=== PATIENT | female | born 1965 | race Caucasian/White ===

== ENCOUNTER → 2021-09-04 | Outpatient (CLI) | payer OTHER ==
[2021-09-04 10:35] LABS: Basophils # (A) 0.08 X 10*3/uL (0.00-0.10); Eosinophils # (A) 0.54 X 10*3/uL (0.04-0.35); HCT 42.4 % (37.2-46.3); HGB 13.9 g/dL (12.0-15.0); Immature Grans, Automated 0.5 %; Lymphocytes # (A) 1.69 X 10*3/uL (0.90-5.00); Lymphocytes % (A) 21.8 %; MCH 27.1 pg (27.0-32.0); MCHC 32.8 g/dL (32.0-37.0); MCV 82.8 fL (80.0-97.0); Mean Platelet Volume 10.1 fL (9.5-12.2); Monocytes # (A) 0.59 X 10*3/uL (0.20-1.00); Monocytes % (A) 7.6 %; NRBC Per 100 WBC 0 /100 WBCS (0.0-0.0); Neutrophils # (A) 4.81 X 10*3/uL (1.80-7.70); Neutrophils % (A) 62.1 %; Platelet Count 234 X 10*3/uL (140-440); RBC 5.12 X 10*6/uL (4.10-5.20); RDW 12.5 % (11.5-14.5); WBC 7.75 X 10*3/uL (4.50-10.00)
[2021-09-04 10:51] LABS: ALT 40 U/L (8-44); AST 28 U/L (13-35); African American GFR (CKD) 65.5 (60.0-200.0); Albumin 4.4 g/dL (3.8-4.9); Albumin/Globulin Ratio 1.83 (1.60-3.17); Alkaline Phosphatase 75 U/L (41-126); BUN/Creat Ratio 20.82 Ratio (12.00-20.00); Blood Urea Nitrogen 22.9 mg/dL (9.0-27.0); Calcium 9.2 mg/dL (8.7-10.3); Carbon Dioxide 24.3 mmol/L (20.0-27.5); Chloride 104 mmol/L (96-109); Chol/HDL Ratio 4.68 Ratio; Globulin 2.4 g/dL (1.6-3.3); Glucose 101 mg/dL (70-110); LDL Cholesterol,Calculated 125.9 mg/dL (0.0-131.0); Non-African American GFR(CKD) 56.5 (60.0-200.0); Potassium 4.4 mmol/L (3.5-5.5); Sodium 139 mmol/L (135-145); Total Protein 6.8 g/dL (6.2-8.2)
--- NOTE | 2021-09-05 11:45 | MM ---
Reason for exam: screening (asymptomatic). History: Patient is postmenopausal. Physical Findings: A clinical breast exam by your physician is recommended on an annual basis and results should be correlated with mammographic findings. MG 3D Screening Mammo W/Cad Bilateral CC and MLO view(s) were taken. No prior studies available for comparison. The breast tissue is heterogeneously dense. This may lower the sensitivity of mammography. A couple subtle areas of asymmetric density laterally on the right and central inner aspect on the left are only apparent on 3D and suspected benign. 6 month follow up recommended as no priors are available to demonstrate stability. ASSESSMENT: Probably benign, BI-RAD 3 RECOMMENDATION: Follow-up diagnostic mammogram of both breasts in 6 months.
== END | disposition home or self-care (01) ==
LOC: RADMAMWWP 07:08
PROVIDERS: ATTEND Family Medicine
DX: Z00.00 Encounter for general adult medical examination without abnormal findings (principal); Z12.31 Encounter for screening mammogram for malignant neoplasm of breast; Z78.0 Asymptomatic menopausal state
CPT/HCPCS: 77063; 77067; 80053; 80061; 83036; 84443; 85025

== ENCOUNTER → 2022-03-11 | Outpatient (CLI) | payer OTHER ==
--- NOTE | 2022-03-13 09:08 | MM ---
Reason for Exam: Follow-up at short interval from prior study. Last screening mammogram was performed 6 month(s) ago. Patient History: Menarche at age 18. First Full-Term at age 21. Postmenopausal. Patient has history of breast feeding. Risk Values: Johnna 5 year model risk: 1.0%. NCI Lifetime model risk: 6.6%. Prior Study Comparison: 09/04/2021 Bilateral Screening Mammogram, [facility]. Tissue Density: The breast tissue is heterogeneously dense. This may lower the sensitivity of mammography. Findings: Analyzed By CAD. Asymmetries within the bilateral breasts are unchanged from prior. These are best appreciated on cc view on the right in the lateral aspect and on the upper quadrant on MLO view on the right. Left breast middle depth medial asymmetry is not significantly changed either. Overall Assessment: Benign, BI-RAD 2 Management: Screening Mammogram of both breasts in 6 months. A clinical breast exam by your physician is recommended on an annual basis and results should be correlated with mammographic findings. This exam should not preclude additional follow-up of suspicious palpable abnormalities. Results were given to the patient verbally at the time of exam. Electronically signed and approved by: Sivakumar Fermin DO
== END | disposition home or self-care (01) ==
LOC: RADMAMWWP 08:28
PROVIDERS: ATTEND Family Medicine
DX: R92.8 Other abnormal and inconclusive findings on diagnostic imaging of breast (principal); Z78.0 Asymptomatic menopausal state
CPT/HCPCS: 77062; 77066

== ENCOUNTER → 2024-01-06 | Outpatient (CLI) | payer OTHER ==
--- NOTE | 2024-01-07 08:21 | MM ---
Reason for Exam: Screening (asymptomatic). Last mammogram was performed 1 year(s) and 10 month(s) ago. Patient History: Menarche at age 18. First Full-Term at age 21. Postmenopausal. Patient has history of breast feeding. Risk Values: Johnna 5 year model risk: 1.0%. NCI Lifetime model risk: 6.5%. Prior Study Comparison: 09/04/2021 Bilateral Screening Mammogram, [facility]. 03/11/2022 Bilateral MG 3D diag mammo w/cad [facility], [facility]. Tissue Density: The breasts are heterogeneously dense, which may obscure small masses. Findings: Analyzed By CAD. There is no suspicious group of microcalcifications or new suspicious mass in either breast. Overall Assessment: Benign, BI-RAD 2 Management: Screening Mammogram of both breasts in 1 year. . Patient should continue monthly self-breast exams. A clinical breast exam by your physician is recommended on an annual basis. This exam should not preclude additional follow-up of suspicious palpable abnormalities. Note on Johnna scores and lifetime risk: 1. A Johnna score greater than 3% is considered moderate risk. If this is the case, consider specialist referral to assess eligibility for a risk reducing agent. 2. If overall lifetime risk for the development of breast cancer is 20% or higher, the patient may qualify for future screening with alternating mammogram and breast MRI. Electronically signed and approved by: Mraio Ariza M.D. Radiologis
== END | disposition home or self-care (01) ==
LOC: RADMAMWWP 07:06
PROVIDERS: ATTEND Family Medicine
DX: Z12.31 Encounter for screening mammogram for malignant neoplasm of breast
CPT/HCPCS: 77063; 77067